=== PATIENT | male | born 1945 | race Caucasian/White ===

== ENCOUNTER 2022-05-29 20:11 | Emergency (ER) | payer MEDICARE, BC ==
[2022-05-29 20:15] VITALS: BP 128/73; PULSE 78
[2022-05-29] MEDS ORDERED: Lidocaine 1% 5 ML VIAL INJECT ONE (20:26)
[2022-05-29] MEDS ORDERED: Diphtheria,Pertussis(Acell),Tetanus Vaccine 0.5 ML Syringe ONE (21:59)
[2022-05-29] MEDS: Diphtheria,Pertussis(Acell),Tetanus Vaccine 0.5 ML Syringe IM ONE ×2 (22:25→22:31)
== END 2022-05-29 23:00 | disposition home or self-care (01) ==
LOC: CC.ED 20:11 → SUPCPDRO 20:11 → CC.ED 23:00
DX: S51.811A Laceration without foreign body of right forearm, initial encounter (principal); S01.81XA Laceration without foreign body of other part of head, initial encounter; I10 Essential (primary) hypertension; Z23 Encounter for immunization; Z79.899 Other long term (current) drug therapy; Z79.82 Long term (current) use of aspirin; W01.10XA Fall on same level from slipping, tripping and stumbling with subsequent striking against unspecified object, initial encounter
CPT/HCPCS: 12001; 12011; 70450; 72125; 90471; 90715; 99283; 99283-25